=== PATIENT | male | born 1995 | race Caucasian/White ===

== ENCOUNTER 2021-02-10 14:56 | Emergency (ER) | payer SELFPAY ==
[~2021-02-10] VITALS: Ht 162.6 cm; Wt 74.8 kg
[2021-02-10 14:56] VITALS: BP 135/86
--- NOTE | 2021-02-10 14:56 | NUR ---
PT BIB [facility] FOR MEDICAL CLEARANCE.
--- NOTE | 2021-02-10 15:02 | NUR ---
PATIENT [facility]. PATIENT EXAMINED BY DR. WILD. PATIENT MEDICALLY CLEARED AND WILL RELEASE HIM TO [facility]LTER
[2021-02-10 15:24] VITALS: BP 135/86
--- NOTE | 2021-02-10 15:25 | NUR ---
PT DISCHARGED TO ASSISTED.
== END 2021-02-10 15:25 ==
LOC: MED 14:56
DX: S80.211A Abrasion, right knee, initial encounter (principal); S80.212A Abrasion, left knee, initial encounter; S50.311A Abrasion of right elbow, initial encounter; Z02.89 Encounter for other administrative examinations; X58.XXXA Exposure to other specified factors, initial encounter; Y93.89 Activity, other specified; Y92.89 Other specified places as the place of occurrence of the external cause; Y99.8 Other external cause status
CPT/HCPCS: 99283